=== PATIENT | male | born 1955 | race Caucasian/White ===

== ENCOUNTER 2016-12-31 16:38 | Emergency (ER) | payer BC ==
[2016-12-31 16:52] VITALS: BP 167/88
[2016-12-31] MEDS ORDERED: Ondansetron 4 MG/2 ML SDV IVPUSH ONE (16:59)
[2016-12-31] MEDS ORDERED: Sodium Chloride 0.9% 1,000 ML IV SCH (17:00)
[2016-12-31] MEDS ORDERED: HYDROmorphone 0.5 MG/0.5 ML Syringe IVPUSH ONE (17:22)
--- NOTE | 2016-12-31 17:27 | EDM.PDOC ---
<Irene Lovell - Last Filed: 12/31/16 17:38> ED HPI GI/ABDOMINAL - General Chief Complaint: Abdominal Pain Stated Complaint: R SIDE FLANK PAIN Time Seen by Provider: 12/31/16 17:22 Source: Reports: Patient History Limitations: Reports: No limitations - History of Present Illness INITIAL COMMENTS - FREE TEXT/NARRATIVE: pt is here for the weekend and he did have a few drinks on Monday. Today he developed acute abdomanal pain in the rt upper abdoman after having a heavy breakfast. he was vomiting sig. on arrival and was quite uncomfortable. Timing/Duration: Reports: Hour(s):, Getting worse Location: RUQ Quality: Reports: stabbing, throbbing Associated Symptoms: Reports: back pain, other ( abdomanal pain goes to his back. ) - Related Data Allergies/ADRs: Allergies Allergy/AdvReac Type Severity Reaction Status Date / Time No Known Allergies Allergy Verified 12/31/16 16:56 Home Meds: Home Meds NK [No Known Home Meds] 12/31/16 [History] Past Medical History HEENT History: Reports: Other (see below) Other HEENT History: chronic left ear drainage Cardiovascular History: Reports: High cholesterol Musculoskeletal History: Reports: Fracture - Infectious Disease History Infectious Disease History: Reports: Other (see below) Other Infectious Disease History: unknown - Past Surgical History GI Surgical History: Reports: Colonoscopy Social & Family History - Tobacco Use Smoking Status *Q: Current Every Day Smoker Years of Tobacco use: 25 Packs/Tins Daily: 0.1 - Caffeine Use Caffeine Use: Reports: Coffee - Alcohol Use Days Per Week of Alcohol Use: 2 Number of Drinks Per Day: 4 Total Drinks Per Week: 8 - Recreational Drug Use Recreational Drug Use: No ED ROS GENERAL - Review of Systems Review Of Systems: See Below Constitutional: Reports: diaphoresis HEENT: Reports: No symptoms Respiratory: Reports: No Symptoms Cardiovascular: Reports: No symptoms Endocrine: Reports: no symptoms GI/Abdominal: Reports: Abdominal pain, Other ( pt has severe rt upper abdomanal pain with sig vomiting. ) : Reports: no symptoms Musculoskeletal: Reports: no symptoms Skin: Reports: no symptoms Neurological: Reports: No Symptoms ED EXAM, GI/ABD - Physical Exam Exam: See Below Text/Narrative:: pt arrived with acute pain in the rt upper abdoman. Exam Limited By: No limitations General Appearance: alert, moderate distress Ears: normal TMs Nose: normal inspection Throat/Mouth: Normal inspection Head: atraumatic Neck: normal inspection Respiratory/Chest: no respiratory distress Cardiovascular: regular rate, rhythm GI/Abdominal: other ( tender over the rt upper abdoman. ) (Male) Exam: Normal inspection Rectal (Males) Exam: Deferred Back Exam: normal inspection Extremities: normal inspection Neurological: alert, oriented, normal cognition Course - Vital Signs Last Recorded V/S: Last Vital Signs Temp 35.9 C 12/31/16 17:13 Pulse 48 L 12/31/16 17:13 Resp 16 12/31/16 17:13 BP 167/88 H 12/31/16 17:13 Pulse Ox 98 12/31/16 17:13 - Orders/Labs/Meds Orders: Active Orders 24 hr Category Date Time Status Abdomen Ltd [US] Stat Exams 12/31/16 17:21 Taken Abdomen Pelvis w Cont [CT] Stat Exams 12/31/16 18:25 Taken Iopamidol [Isovue-300 (61%)] Med 12/31/16 18:35 Active 150 ml IV . DIRECTED PRN Sodium Chloride 0.9% [Normal Saline] 1,000 ml Med 12/31/16 17:00 Active IV ASDIRECTED Sodium Chloride 0.9% [Normal Saline] 89 ml Med 12/31/16 18:45 Active IV ASDIRECTED Medication Orders Sodium Chloride (Normal Saline) 1,000 mls @ 999 mls/hr IV ASDIRECTED LOWELL Last Admin: 12/31/16 17:12 Dose: 999 mls/hr Sodium Chloride (Normal Saline) 89 mls @ 3.5 mls/sec IV ASDIRECTED LOWELL Last Admin: 12/31/16 18:50 Dose: 3.5 mls/sec Iopamidol (Isovue-300 (61%)) 150 ml IV . DIRECTED PRN PRN Reason: RADIOLOGY EXAM Stop: 01/01/17 18:36 Last Admin: 12/31/16 18:50 Dose: 150 ml Labs: Laboratory Tests 12/31/16 12/31/16 12/31/16 Range/Units 16:59 16:59 17:00 WBC 8.5 (4.5-11.0) K/uL RBC 5.42 (4.30-5.90) M/uL Hgb 15.9 H (12.0-15.0) g/dL Hct 46.7 (40.0-54.0) % MCV 86 (80-98) fL MCH 29 (27-31) pg MCHC 34 (32-36) % Plt Count 236 (150-400) K/uL Neut % (Auto) 74 H (36-66) % Lymph % (Auto) 16 L (24-44) % [place] % (Auto) 8 H (2-6) % Eos % (Auto) 1 L (2-4) % Baso % (Auto) 1 (0-1) % Sodium 137 L (140-148) mmol/L Potassium 4.0 (3.6-5.2) mmol/L Chloride 101 (100-108) mmol/L Carbon Dioxide 28 (21-32) mmol/L Anion Gap 12.0 (5.0-14.0) mmol/L BUN 14 (7-18) mg/dL Creatinine 1.3 (0.8-1.3) mg/dL Est Cr Clr Drug Dosing 57.20 mL/min Estimated GFR (MDRD) 57 L (>60) Glucose 127 H (74-106) mg/dL Calcium 8.6 (8.5-10.1) mg/dL Total Bilirubin 0.4 (0.2-1.0) mg/dL AST 35 (15-37) U/L ALT 79 H (12-78) U/L Alkaline Phosphatase 81 (46-116) U/L Total Protein 8.1 (6.4-8.2) g/dL Albumin 4.1 (3.4-5.0) g/dL Globulin 4.0 H (2.3-3.5) g/dL Albumin/Globulin Ratio 1.0 L (1.2-2.2) Amylase (25-115) U/L Lipase 209 (73-393) U/L Urine Color Urine Appearance Urine pH (4.5-8.0) Ur Specific [place] (1.008-1.030) Urine Protein (NEGATIVE) mg/dL Urine Glucose (UA) (NEGATIVE) mg/dL Urine Ketones (NEGATIVE) mg/dL Urine Occult Blood (NEGATIVE) Urine Nitrite (NEGAITVE) Urine Bilirubin (NEGATIVE) Urine Urobilinogen (NORMAL) mg/dL Ur Leukocyte Esterase (NEGATIVE) Urine RBC (0-5) Urine WBC (0-5) Ur Epithelial Cells Amorphous Sediment Urine Bacteria Urine Mucus 12/31/16 12/31/16 Range/Units 17:01 18:45 WBC (4.5-11.0) K/uL RBC (4.30-5.90) M/uL Hgb (12.0-15.0) g/dL Hct (40.0-54.0) % MCV (80-98) fL MCH (27-31) pg MCHC (32-36) % Plt Count (150-400) K/uL Neut % (Auto) (36-66) % Lymph % (Auto) (24-44) % [place] % (Auto) (2-6) % Eos % (Auto) (2-4) % Baso % (Auto) (0-1) % Sodium (140-148) mmol/L Potassium (3.6-5.2) mmol/L Chloride (100-108) mmol/L Carbon Dioxide (21-32) mmol/L Anion Gap (5.0-14.0) mmol/L BUN (7-18) mg/dL Creatinine (0.8-1.3) mg/dL Est Cr Clr Drug Dosing mL/min Estimated GFR (MDRD) (>60) Glucose (74-106) mg/dL Calcium (8.5-10.1) mg/dL Total Bilirubin (0.2-1.0) mg/dL AST (15-37) U/L ALT (12-78) U/L Alkaline Phosphatase (46-116) U/L Total Protein (6.4-8.2) g/dL Albumin (3.4-5.0) g/dL Globulin (2.3-3.5) g/dL Albumin/Globulin Ratio (1.2-2.2) Amylase 81 (25-115) U/L Lipase (73-393) U/L Urine Color Yellow Urine Appearance Clear Urine pH 6.0 (4.5-8.0) Ur Specific [place] 1.020 (1.008-1.030) Urine Protein Negative (NEGATIVE) mg/dL Urine Glucose (UA) Normal (NEGATIVE) mg/dL Urine Ketones 15 H (NEGATIVE) mg/dL Urine Occult Blood Trace (NEGATIVE) Urine Nitrite Negative (NEGAITVE) Urine Bilirubin Negative (NEGATIVE) Urine Urobilinogen Normal (NORMAL) mg/dL Ur Leukocyte Esterase Negative (NEGATIVE) Urine RBC 5-10 H (0-5) Urine WBC 0-5 (0-5) Ur Epithelial Cells Rare Amorphous Sediment Not seen Urine Bacteria Rare Urine Mucus Few Meds: Medications Generic Name Dose Route Start Last Admin Trade Name Freq PRN Reason Stop Dose Admin Sodium Chloride 1,000 mls @ 999 mls/hr 12/31/16 17:00 12/31/16 17:12 Normal Saline IV 999 mls/hr ASDIRECTED LOWELL Administration Sodium Chloride 89 mls @ 3.5 mls/sec 12/31/16 18:45 12/31/16 18:50 Normal Saline IV 3.5 mls/sec ASDIRECTED LOWELL Administration Iopamidol 150 ml 12/31/16 18:35 12/31/16 18:50 Isovue-300 (61%) IV 01/01/17 18:36 150 ml . DIRECTED PRN Administration RADIOLOGY EXAM Discontinued Medications Generic Name Dose Route Start Last Admin Trade Name Freq PRN Reason Stop Dose Admin Hydromorphone HCl 0.5 mg 12/31/16 17:22 12/31/16 17:30 Dilaudid IVPUSH 12/31/16 17:23 0.5 mg ONETIME ONE Administration Ondansetron HCl 4 mg 12/31/16 16:59 12/31/16 17:12 Zofran IVPUSH 12/31/16 17:00 4 mg ONETIME ONE Administration Sodium Chloride 10 ml 12/31/16 18:35 12/31/16 18:50 Saline Flush FLUSH 12/31/16 18:36 10 ml ONETIME ONE Administration - Re-Assessments/Exams Free Text/Narrative Re-Assessment/Exam: 12/31/16 17:38 pt has a normal amylase and lipase. He has a normal wbc. He has mild elevation in his alt. Departure - Departure Disposition: Home, Self-Care 01 Clinical Impression: Sclerosing mesenteritis Forms: ED Department Discharge Additional Instructions: We will provide for you a copy of this article on mesenteric panniculitis and also a copy of your CT report. As we discussed I would recommend that you followup with your doctor in [place] when you return. Pain meds and nausea meds were provided. I wish her the best of luck <Adrián Pena - Last Filed: 12/31/16 20:56> Course - Vital Signs Text/Narrative:: The CT report is back on this gentleman in his demonstrate straightening the possibility of mesenteric panniculitis. They are from the [facility] and returning there tomorrow. He is pain-free at this time but would like to be discharged with some pain medications and medications for nausea. I have treated off some information on sclerosing mesenteritis that they can review and also a copy of the CT report and he will plan to followup with his primary care doctor and discuss further with him what to pursue and what options for treatment are available. Departure - Departure Time of Disposition: 20:55 Condition: good
[2016-12-31] MEDS ORDERED: Iopamidol 612 MG/ML 150 ML Bottle IV PRN (18:35)
[2016-12-31] MEDS ORDERED: Sodium Chloride 0.9% 10 ML Syringe FLUSH ONE (18:35)
== END 2016-12-31 21:17 | disposition home or self-care (01) ==
LOC: JP.ED 16:38
DX: K65.4 Sclerosing mesenteritis (principal); E78.00 Pure hypercholesterolemia, unspecified; F17.210 Nicotine dependence, cigarettes, uncomplicated
CPT/HCPCS: 36415; 74177; 76705; 80053; 81001; 82150; 83690; 85025; 96361; 96374; 96375; 99284; J1170; J2405; J7030; J7040; J7050